=== PATIENT | female | born 1950 | race African-American/Black ===

== ENCOUNTER 2016-10-31 08:57 | Day surgery (SDC) | payer MEDICARE, MEDICAID ==
[~2016-10-31] VITALS: Ht 157.5 cm; Wt 98.6 kg
[~2016-10-31 08:57] MED LIST: ADVAI250I PO; ALBU0.08 NEB; BUME1TAB PO; CARV25TA PO; CLAR10CA3 PO; CLON.1 PO; CYAN1000P IM; HYDR-3535 PO; LACT10SO47; LISI40TA PO; MEDR4PAK PO; MOME17I EACH NARE; NIFE1TAB86 PO; PREV30CA11 PO; PROC10003 SQ; PROT40TA PO; REST15CA PO; SIMV40TA PO; VENTAER INH
[2016-10-31 09:26] VITALS: BP 174/88; PULSE 71; RESP 20; TEMP 98; O2SAT 97
[2016-10-31] MEDS ORDERED: CALC0.5C6 PO (10:03)
[2016-10-31] MEDS ORDERED: NIFE60TA58 PO (10:03)
[2016-10-31] MEDS ORDERED: METH500T3 PO (10:03)
[2016-10-31] MEDS ORDERED: ADVA250A INH (10:03)
[2016-10-31] MEDS ORDERED: BUME1TAB28 PO (10:03)
[2016-10-31] MEDS ORDERED: SEVEL800 PO (10:03)
[2016-10-31] MEDS ORDERED: DICL1GEL7 TOPICAL (10:03)
[2016-10-31 10:06] LABS: AUTOMATED NEUTROPHIL # 4.9 TH/MM3 (1.8-7.7); BASOPHIL # 0.1 TH/MM3 (0-0.2); BASOPHIL % 0.7 % (0.0-2.0); EOSINOPHIL # 0.2 TH/MM3 (0-0.4); EOSINOPHIL % 2.5 % (0.0-4.0); HEMATOCRIT 27.9 % (35.0-46.0); HEMO FLAGS DIFF FINAL; LYMPH % 17.7 % (9.0-44.0); LYMPHOCYTE # 1.3 TH/MM3 (1.0-4.8); MEAN CELL VOLUME 90.5 FL (80.0-100.0); MEAN CORPUSCULAR HEMOGLOBIN 29.2 PG (27.0-34.0); MEAN CORPUSCULAR HGB CONC 32.2 % (32.0-36.0); MONO % 12.5 % (0.0-8.0); NEUT % 66.6 % (16.0-70.0); PLATELET COUNT 253 TH/MM3 (150-450); RED BLOOD COUNT 3.09 MIL/MM3 (4.00-5.30); RED CELL DISTRIBUTION WIDTH 17.7 % (11.6-17.2); WHITE BLOOD COUNT 7.3 TH/MM3 (4.0-11.0)
[2016-10-31] MEDS ORDERED: SODIUM CHLOR 0.9% 1000 ML INJ 1,000 ML IV SCH (10:45)
[2016-10-31] MEDS ORDERED: LIDOCAINE 1%/EPINEPHrine 1:100,000 SOLN 20 ML VIAL ONE (11:49)
[2016-10-31] MEDS ORDERED: MIDAZOLAM HCL 5 MG/5 ML VIAL ONE (12:03)
[2016-10-31] MEDS ORDERED: fentaNYL CITRATE 250 MCG/5 ML AMP ONE (12:03)
[2016-10-31 13:05] VITALS: BP 152/69; PULSE 68; RESP 18; TEMP 97.6; O2SAT 96
[2016-10-31 13:20] VITALS: BP 159/77; PULSE 64; RESP 16; O2SAT 98
--- NOTE | 2016-10-31 13:25 | RADRPT ---
EXAM DATE/TIME: 10/31/2016 12:22 [facility] COMPARISON: No previous studies available for comparison. INDICATIONS : Chronic anemia; bone marrow biopsy. SEDATION TIME: 30 minutes BIOPSY SITE: Right iliac. MEDICATION(S): 1.) 3 mg midazolam (Versed) IV 2.) 200 mcg fentanyl (Sublimaze) DEVICE(S): 1.) 11 gauge Bone marrow biopsy needle MEDICAL HISTORY : Renal failure, chronic. Hypertension. Chronic anemia. SURGICAL HISTORY : Hernia repair. ENCOUNTER: Initial ACUITY: 1 day PAIN SCORE: 0/10 LOCATION: Right iliac. A total of one core specimen(s) were obtained and sent to the laboratory for pathologic evaluation. PROCEDURE: 1. CT guided bone marrow biopsy. Prior to the procedure informed consent was obtained. Any appropriate prior imaging studies were rev iewed. The site was prepped in a sterile fashion. Full sterile technique was used, including cap, mask, true rile gloves and gown and a large sterile sheet. Hand hygiene and 2% chlorhexidine and/or betadine/al cohol prep was utilized per protocol for cutaneous antisepsis. The skin and subcutaneous tissues wer e infiltrated with local anesthetic solution. With CT guidance the previously identified target was localized. Biopsy was performed using the presc ribed needle as above. Following biopsy marrow aspiration was performed with repeat puncture. Adequa te hemostasis was obtained with compression at the puncture site. Follow-up CT scan reveals no hemorrhage. Conscious sedation was performed with the prescribed dosages and duration as above. The patient nandini ated the procedure well and there were no complications. EKG and oximetry remained stable throughout the procedure. The patient was sent to Radiology Outpatient Unit in stable condition. CONCLUSION: 1. Uncomplicated CT guided bone marrow aspirate. 2. Uncomplicated CT guided bone marrow biopsy. Chauncey Camejo MD on October 31, 2016 at 13:23 Board Certified Radiologist. This report was verified electronically.
[2016-10-31 13:31] LABS: BONE MARROW PROCESSING COMPLETE; IRON STAIN DONE; JENNER GIEMSA STAIN DONE
[2016-10-31 13:50] VITALS: BP 155/73; PULSE 68; RESP 18; O2SAT 97
[2016-10-31] MEDS ORDERED: oxyCODONE/ACETAMINOPHEN 5 MG/325 MG TAB PO PRN (14:15)
[2016-10-31 14:20] VITALS: BP 142/73; PULSE 57; RESP 18; O2SAT 96
[2016-12-05] MEDS ORDERED: CLON.1 PO (21:51)
[2016-12-07] MEDS ORDERED: CARV25TA PO (15:42)
[2017-01-04] MEDS ORDERED: ALCO1PAD TOPICAL (21:37)
[2017-03-17] MEDS ORDERED: TRIA40P I-ARTICULR (11:37)
== END 2016-10-31 14:50 | disposition home or self-care (01) ==
LOC: HRAD 08:57 → HRIP 08:59 → EDSTATUS 09:00 → HRAD 14:50
PROVIDERS: ATTEND Internal Medicine Hematology & Oncology
DX: D64.9 Anemia, unspecified (principal); N18.9 Chronic kidney disease, unspecified; I10 Essential (primary) hypertension; C85.90 Non-Hodgkin lymphoma, unspecified, unspecified site
CPT/HCPCS: 38221; 77012; 85025; 85097; 88184; 88185; 88237; 88264; 88280; 88305; 88311; 88313; 88341; 88342; 99152; 99153; C1830; J2250; J3010

== ENCOUNTER 2016-12-31 14:09 | Emergency (ER) | payer MEDICARE, MEDICAID ==
[~2016-12-31] VITALS: Ht 157.5 cm; Wt 98.0 kg
[~2016-12-31 14:09] MED LIST changes: +ADVA250A INH; -ADVAI250I PO; -BUME1TAB PO; +BUME1TAB28 PO; +CALC0.5C6 PO; +DICL1GEL7 TOPICAL; -MEDR4PAK PO; +METH500T3 PO; -NIFE1TAB86 PO; +NIFE60TA58 PO; -PROT40TA PO; +SEVEL800 PO; -SIMV40TA PO
[2016-12-31 14:11] VITALS: BP 184/74; PULSE 64; RESP 20; TEMP 98; O2SAT 99
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
--- NOTE | 2016-12-31 16:13 | RADRPT ---
EXAM DATE/TIME: 12/31/2016 15:22 [facility] COMPARISON: No previous studies available for comparison. INDICATIONS : Right shoulder pain MEDICAL HISTORY : Renal failure, chronic. Hypertension. Chronic anemia. SURGICAL HISTORY : Hernia repair. ENCOUNTER: Initial ACUITY: 1 day PAIN SCORE: 8/10 LOCATION: Right upper extremity FINDINGS: Multiple view examination of the right shoulder demonstrates no evidence of fracture or dislocation. The glenohumeral and acromioclavicular joints are maintained. There is normal range of motion betwe en internal and external rotation. Bony mineralization is normal. CONCLUSION: Unremarkable study for patient's age. Tyler Argueta MD on December 31, 2016 at 16:11 Board Certified Radiologist. This report was verified electronically.
[2017-01-04] MEDS ORDERED: ALCO1PAD TOPICAL (21:37)
[2017-03-17] MEDS ORDERED: TRIA40P I-ARTICULR (11:37)
== END 2016-12-31 16:44 | disposition home or self-care (01) ==
LOC: NEPK 14:09
DX: S40.011A Contusion of right shoulder, initial encounter (principal); W03.XXXA Other fall on same level due to collision with another person, initial encounter
CPT/HCPCS: 73030; 99283

== ENCOUNTER 2017-04-05 14:45 | Emergency (ER) | payer OTHER, MEDICARE, MEDICAID ==
[~2017-04-05] VITALS: Ht 157.5 cm; Wt 96.5 kg
[~2017-04-05 14:45] MED LIST changes: +ALCO1PAD TOPICAL
[2017-04-05 14:47] VITALS: BP 184/75; PULSE 68; RESP 20; TEMP 98.4; O2SAT 99
[2017-04-05 15:46] VITALS: BP 172/89
[2017-04-05 15:56] VITALS: BP 160/75
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
[2017-04-05] MEDS ORDERED: ONDANSETRON ODT 4 MG TAB PO ONE (16:15)
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
[2017-04-05] MEDS ORDERED: NON-500T13 PO (17:13)
[2017-04-05] MEDS ORDERED: ZOFR4TAB3 SL (17:13)
[2017-04-05] MEDS ORDERED: CYCL1TAB29 PO (17:13)
[2017-04-05] MEDS ORDERED: ACETAMINOPHEN 325 MG TAB PO ONE (17:15)
== END 2017-04-05 17:42 | disposition home or self-care (01) ==
LOC: NEPK 14:45
DX: R51 Headache (principal); S46.911A Strain of unspecified muscle, fascia and tendon at shoulder and upper arm level, right arm, initial encounter; S39.012A Strain of muscle, fascia and tendon of lower back, initial encounter; R42 Dizziness and giddiness; R11.0 Nausea; I11.0 Hypertensive heart disease with heart failure; I50.9 Heart failure, unspecified; E11.9 Type 2 diabetes mellitus without complications; V44.6XXA Car passenger injured in collision with heavy transport vehicle or bus in traffic accident, initial encounter
CPT/HCPCS: 70450; 99285

== ENCOUNTER → 2017-06-13 | Outpatient (CLI) | payer MEDICARE, MEDICAID ==
[~2017-06-13] MED LIST changes: -LACT10SO47; -NIFE60TA58 PO; -PREV30CA11 PO; +SIMV40TA PO
[2017-06-13 12:38] LABS: ANION GAP 6 MEQ/L (5-15); AST (GOT) 16 U/L (15-37); BICARBONATE 24.6 MEQ/L (21.0-32.0); BLOOD UREA NITROGEN 67 MG/DL (7-18); CHLORIDE 104 MEQ/L (98-107); GLOMERULAR FILTRATION RATE 8 ML/MIN (>89); GLUCOSE,FASTING 91 MG/DL (74-99); POTASSIUM 4.1 MEQ/L (3.5-5.1); SODIUM (NA) 135 MEQ/L (136-145)
[2017-06-13 12:39] LABS: ALT (GPT) 14 U/L (10-53)
[2017-06-13 12:41] LABS: ALKALINE PHOSPHATASE 83 U/L (45-117); TOTAL BILIRUBIN ADULT 0.5 MG/DL (0.2-1.0)
== END ==
LOC: CLAB 11:35
PROVIDERS: ATTEND Family Medicine
DX: I12.9 Hypertensive chronic kidney disease with stage 1 through stage 4 chronic kidney disease, or unspecified chronic kidney disease (principal); N18.4 Chronic kidney disease, stage 4 (severe)
CPT/HCPCS: 36415; 80053; 82043